=== PATIENT | male | born 1970 | race Two or more races ===

== ENCOUNTER 2016-05-31 13:16 | Day surgery (SDC) | payer OTHER ==
[2016-05-30 15:09] VITALS: BMI 39.6
[~2016-05-31] VITALS: Ht 182.9 cm; Wt 91.2 kg
[2016-05-31] VITALS (13 sets, daily range): BP systolic 115–143; BP diastolic 57–69; PULSE 52–65; RESP 14–25; Ht 182.9 cm; Wt 91.2 kg
[2016-05-31] MEDS ORDERED: GLYCOPYRROLATE 0.4 MG INJ ONE (13:49)
[2016-05-31] MEDS ORDERED: DEXAMETHASONE 4 MG/ML 1 ML INJ ONE (13:49)
[2016-05-31] MEDS ORDERED: ROCURONIUM 50 MG INJ ONE (13:49)
[2016-05-31] MEDS ORDERED: BUPIVACAINE 0.25% (MPF) 30 ML INJ ONE (13:49)
[2016-05-31] MEDS ORDERED: NEOSTIGMINE 3 MG/3 ML SYRINGE ONE (13:49)
[2016-05-31] MEDS ORDERED: CEFAZOLIN 1 GM INJ ONE (13:49)
[2016-05-31] MEDS ORDERED: PROPOFOL 20 ML ONE (13:49)
[2016-05-31] MEDS ORDERED: MIDAZOLAM 1 MG/ML 2 ML INJ ONE (13:49)
[2016-05-31] MEDS ORDERED: FENTAnyl 50 MCG/ML VIAL ONE ×4 (13:49→15:58)
[2016-05-31] MEDS ORDERED: ONDANSETRON 4 MG INJ ONE (13:49)
[2016-05-31] MEDS ORDERED: SOD CHLORIDE 0.9% 1,000 ML IV SCH (14:00)
[2016-05-31] MEDS ORDERED: CEFAZOLIN 2 GM/50 ML (PMX) 50 ML IVPB ONE (14:00)
[2016-05-31] MEDS ORDERED: BUPIVACAINE 0.25% (MPF) 10 ML 10 ML VIAL INJ ONE (15:06)
[2016-05-31] MEDS ORDERED: HYDROCODONE/APAP (5/325) TAB PO ONE (15:30)
--- NOTE | 2016-05-31 15:43 | OPR ---
DATE OF OPERATION: 05/31/2016 INDICATION: This is a 45-year-old male with a left inguinal hernia. He requests surgical repair. The risks, alternatives, benefits, and personnel were discussed with the patient. The patient expre ssed understanding and consented to the operation. PREOPERATIVE DIAGNOSIS: Left inguinal hernia. POSTOPERATIVE DIAGNOSIS: Left inguinal hernia. OPERATION: Open left inguinal hernia repair with medium size Ultrapro hernia system mesh. SURGEON: Yohan Rodas MD SPECIMEN: None. COMPLICATIONS: None. ANESTHESIA: General. DESCRIPTION OF PROCEDURE: The patient was taken to the OR, prepped and draped in the usual sterile fashion. A surgical timeout was performed. IV antibiotics were given. A left inguinal oblique inc ision was made with a 10 blade. Dissection cautery was carried down to external oblique fascia, whi ch was opened with a 15 blade. This incision was extended near inferiorly and lateral superiorly w ith Metzenbaum scissors. The cord structures were encircled with a Saurabh drain. An indirect jn ia was identified and reduced. This was bolstered with the disk portion of the UltraPro hernia syst em mesh which was secured in place with a running 0 Prolene from the pubic tubercle along the shelvi ng edge of the inguinal ligament and superiorly to the internal oblique with interrupted 3-0 Vicryl. Onlay mesh was secured in a similar fashion with a running 0 Prolene from the pubic tubercle along the shelving edge of the inguinal ligament. Straps were created and reapproximated to recreate the inguinal ring. Onlay mesh was secured to the internal oblique with interrupted 3-0 Vicryl. Applied [employer] Chair al oblique was closed with a running 3-0 Vicryl. Miguel's was closed with interrupted 3-0 Vicryl. The skin was closed using skin shy. Local anesthesia was injected and dry dressings were applie d. Dictated By: YOHAN HOWARD/ELAN Conf#: [id number] DID#: [id number]
[2016-05-31] MEDS ORDERED: KETOROLAC 30 MG INJ ONE (15:49)
[2016-05-31] MEDS ORDERED: FENTAnyl 50 MCG/ML VIAL IV PRN ×3 (16:00)
[2016-05-31] MEDS ORDERED: MEPERIDINE 25 MG INJ IV PRN (16:00)
[2016-05-31] MEDS ORDERED: ONDANSETRON 4 MG INJ IV PRN (16:00)
[2016-05-31] MEDS ORDERED: KETOROLAC 30 MG INJ IV ONE (16:00)
[2016-05-31] MEDS ORDERED: HYDROmorphONE (0.2 MG/ML) 10ML SYG IV PRN ×2 (16:00)
[2016-05-31] MEDS ORDERED: DIPHENHYDRAMINE 50 MG INJ IV PRN (16:00)
== END 2016-05-31 17:11 | disposition home or self-care (01) ==
LOC: SDS 13:16
PROVIDERS: ATTEND Surgery
DX: K40.90 Unilateral inguinal hernia, without obstruction or gangrene, not specified as recurrent (principal)
CPT/HCPCS: 49505; C1781; J0690; J1100; J1885; J2250; J2405; J2710; J3010; Z7512; Z7610

== ENCOUNTER 2018-02-03 12:25 | Inpatient (IN) | END 2018-02-05 15:10 | disposition home health service (06) | DRG 660 ==

== ENCOUNTER 2018-03-08 09:00 | Day surgery (SDC) | END 2018-03-08 15:30 | disposition home or self-care (01) ==